=== PATIENT | male | born 1965 | race Caucasian/White ===

== ENCOUNTER 2017-08-13 19:17 | Emergency (ER) | payer OTHER ==
[2017-08-13 20:56] VITALS: BP 136/97
== END 2017-08-13 20:56 | disposition home or self-care (01) ==
LOC: ED 19:17
DX: L02.413 Cutaneous abscess of right upper limb (principal)
CPT/HCPCS: J2001; J2270; Q0162

== ENCOUNTER 2017-08-16 19:20 | Emergency (ER) | payer OTHER ==
[~2017-08-16] VITALS: Ht 157.5 cm; Wt 55.3 kg
[2017-08-16 19:46] VITALS: BP 119/82; Ht 157.5 cm; Wt 55.3 kg
== END 2017-08-16 21:03 | disposition home or self-care (01) ==
LOC: ED 19:20
DX: M79.601 Pain in right arm (principal); Z48.01 Encounter for change or removal of surgical wound dressing

== ENCOUNTER 2018-02-06 17:15 | Emergency (ER) | payer OTHER ==
[~2018-02-06] VITALS: Ht 157.5 cm; Wt 61.2 kg
[2018-02-06 17:29] VITALS: Ht 157.5 cm; Wt 61.2 kg
[2018-02-06 20:41] VITALS: BP 130/90
== END 2018-02-06 20:41 | disposition home or self-care (01) ==
LOC: ED 17:15
DX: K08.89 Other specified disorders of teeth and supporting structures (principal); Z85.05 Personal history of malignant neoplasm of liver

== ENCOUNTER 2018-03-22 01:25 | Emergency (ER) | payer OTHER ==
[~2018-03-22] VITALS: Ht 154.9 cm; Wt 60.8 kg
[2018-03-22 01:33] VITALS: BP 131/75; Ht 154.9 cm; Wt 60.8 kg
[2018-03-22 02:30] LABS: microscopic required? YES; urine erythrocyte 3+ (NEGATIVE)
== END 2018-03-22 03:14 | disposition home or self-care (01) ==
LOC: ED 01:25
PROVIDERS: Emergency Medicine
DX: T83.511A Infection and inflammatory reaction due to indwelling urethral catheter, initial encounter (principal); N39.0 Urinary tract infection, site not specified; Z85.118 Personal history of other malignant neoplasm of bronchus and lung
CPT/HCPCS: J1885

== ENCOUNTER 2018-06-23 02:28 | Emergency (ER) | payer OTHER ==
[~2018-06-23] VITALS: Ht 154.9 cm; Wt 57.2 kg
[2018-06-23 02:36] VITALS: Ht 154.9 cm; Wt 57.2 kg
[2018-06-23 09:11] VITALS: BP 115/81
== END 2018-06-23 09:11 | disposition home or self-care (01) ==
LOC: ED 02:28
DX: T83.018A Breakdown (mechanical) of other urinary catheter, initial encounter (principal); N39.0 Urinary tract infection, site not specified; K40.90 Unilateral inguinal hernia, without obstruction or gangrene, not specified as recurrent; Y92.89 Other specified places as the place of occurrence of the external cause
CPT/HCPCS: J2270; Q0162